=== PATIENT | male | born 1975 | race African-American/Black ===

== ENCOUNTER 2022-09-20 00:01 | Inpatient (IN) | payer OTHER ==
[2022-09-20] MEDS ORDERED: Morphine 4 MG/ML VIAL ONE (00:43)
[2022-09-20 01:27] LABS: ALT (SGPT) 13 U/L (8-55); AST (SGOT) 16 U/L (5-34); Albumin 3.4 g/dL (3.5-5.0); Alkaline Phosphatase 78 U/L (40-110); Anion Gap 12 mmol/L (10-20); BUN (Urea Nitrogen) 16 mg/dL (8.9-20.6); Bilirubin, Total 1.7 mg/dL (0.2-1.2); Calc. Creatinine Clearance 0 mL/min (70-130); Carbon Dioxide 22 mmol/L (22-29); Chloride 104 mmol/L (98-107); Estimated GFR 87; Globulin 3.8 g/dL (2.4-3.5); Glucose 158 mg/dL (70-105); Potassium 4.2 mmol/L (3.5-5.1); Protein, Total 7.2 g/dL (6.0-8.3); Sodium 134 mmol/L (136-145)
[2022-09-20] MEDS ORDERED: cefTRIAXone\\ROCEPHIN 1 GM VIAL ONE (01:46)
[2022-09-20 01:59] LABS: Hemoglobin 13.1 g/dL (14.0-18.0); Mean Corpuscular HGB CONC 32.3 g/dL (32.0-36.0); Mean Corpuscular Hemoglobin 30.8 pg (27.0-31.0); Mean Corpuscular Volume 95.4 fl (78.0-98.0); Mean Platelet Volume 8.4 fL (7.4-10.4); Platelet Count 289 10x3/uL (130-400); RBC Distribution Width 13.1 % (11.5-14.5); Red Blood Cell (RBC) Count 4.25 mill/uL (4.70-6.10); White Blood Cell (WBC) Count 19.7 10x3/uL (4.8-10.8)
[2022-09-20 02:08] LABS: INR-International Normal Ratio 1.2; Prothrombin Time 16.1 sec (12.0-14.7)
[2022-09-20 02:09] LABS: PTT 41.4 sec (22.9-36.1)
[2022-09-20 02:16] LABS: Band 6 % (5-11); Eosinophils 1 % (0-10); Lymphocytes 6 % (21-51); MDiff Complete? YES; Monocytes 11 % (0-10); Neutrophil 76 % (42-75); Platelet Morphology Comment Appears Adequate; RBC Morphology Normal
[2022-09-20] MEDS ORDERED: Heparin 10,000 UNITS/ 10 ML VIAL SLOW IVP SCH (03:00)
[2022-09-20] MEDS ORDERED: Ondansetron ODT 4 MG TAB PO PRN (03:05)
[2022-09-20] MEDS ORDERED: Ondansetron PF 4 MG/2 ML Vial IVP PRN (03:05)
[2022-09-20] MEDS ORDERED: Sodium Chloride 0.9% 1,000 ML IV SCH (03:15)
[2022-09-20 03:25] LABS: Hemoglobin 12.5 g/dL (14.0-18.0); Platelet Count 291 10x3/uL (130-400)
[2022-09-20] MEDS ORDERED: Heparin 25,000 units/D5W 500 ML ONE (04:44)
[2022-09-20] MEDS ORDERED: Heparin 10,000 UNITS/ 10 ML VIAL ONE (04:44)
[2022-09-20] MEDS ORDERED: Azithromycin 500 MG VIAL ONE ×2 (04:45→04:46)
[2022-09-20] MEDS: Heparin 25,000 units/D5W 500 ML IVPB SCH ×2 (05:14→23:59)
[2022-09-20] MEDS: Azithromycin 500 MG in Sodium Chloride 0.9% 250 ML 250 ML IVPB SCH (05:15)
[2022-09-20 06:43] VITALS: BMI 30.9
[2022-09-20] MEDS ORDERED: Genteal 0.3% 3.5ml GEL EA EYE PRN (09:48)
[2022-09-20] MEDS ORDERED: Albuterol Sulfate 2.5 mg/3 ml Neb NEB PRN (09:58)
[2022-09-20 10:13] LABS: PTT 121.8 sec (22.9-36.1)
[2022-09-20 13:58] LABS: Hemoglobin 12.1 g/dL (14.0-18.0)
[2022-09-20] MEDS: HYDROcodone/Acetaminophen 5/325 mg Tablet PO PRN (21:23)
[2022-09-21] MEDS: cefTRIAXone\\ROCEPHIN 1 GM in Sodium Chloride 0.9% 100 ML IVPB SCH (02:14)
[2022-09-21] MEDS: HYDROcodone/Acetaminophen 5/325 mg Tablet PO PRN ×3 (03:18→23:26)
[2022-09-21] MEDS: Azithromycin 500 MG in Sodium Chloride 0.9% 250 ML 250 ML IVPB SCH (03:18)
[2022-09-21 05:07] LABS: Anion Gap 10 mmol/L (10-20); BUN (Urea Nitrogen) 10 mg/dL (8.9-20.6); Calc. Creatinine Clearance 161 mL/min (70-130); Calcium 8.5 mg/dL (7.8-10.44); Carbon Dioxide 24 mmol/L (22-29); Chloride 105 mmol/L (98-107); Estimated GFR 108; Glucose 89 mg/dL (70-105); Potassium 3.6 mmol/L (3.5-5.1); Sodium 135 mmol/L (136-145)
[2022-09-21 05:30] LABS: Burr Cells SLIGHT = 2-5 cells (100X) (0-1/hpf); Eosinophils 3 % (0-10); Hemoglobin 11.4 g/dL (14.0-18.0); Hypochromia SLIGHT = 6-15 cells (100X) (0-5/hpf); Lymphocytes 19 % (21-51); MDiff Complete? YES; Mean Corpuscular HGB CONC 31.8 g/dL (32.0-36.0); Mean Corpuscular Volume 94.3 fl (78.0-98.0); Mean Platelet Volume 7.7 fL (7.4-10.4); Monocytes 11 % (0-10); Neutrophil 67 % (42-75); Platelet Count 330 10x3/uL (130-400); Platelet Morphology Comment Appears Adequate; Polychromasia SLIGHT = 2-3 cells (100X) (0-2/hpf); RBC Distribution Width 13.1 % (11.5-14.5); Red Blood Cell (RBC) Count 3.82 mill/uL (4.70-6.10); White Blood Cell (WBC) Count 11.9 10x3/uL (4.8-10.8)
[2022-09-21 16:00] LABS: INR-International Normal Ratio 1.1
[2022-09-21 16:01] LABS: PTT 72.2 sec (22.9-36.1)
[2022-09-21 16:02] LABS: D-Dimer Test 3.04 *mcg/mL (0.27-0.43)
[2022-09-21 16:19] LABS: ALT (SGPT) 18 U/L (8-55); AST (SGOT) 25 U/L (5-34); Albumin 3.4 g/dL (3.5-5.0); Alkaline Phosphatase 78 U/L (40-110); Bilirubin, Direct 0.3 mg/dL (0.1-0.3); Protein, Total 6.6 g/dL (6.0-8.3)
[2022-09-21 16:32] LABS: Homocysteine 7.88 umol/L (5.08-15.39)
[2022-09-21 16:48] LABS: HBCM Index 0.08 S/CO (0-0.79); HBSAg Index 0.96 S/CO (0-0.99); HIV (1/2) Antibody/Antigen Non-Reactive (NonReactive); Hep A IgM AB Non-Reactive (NonReactive); Hep A IgM S/CO 0.19 S/CO (0-0.79); Hep B Surf Ag Non-Reactive S/CO (NonReactive); Hep C IgG Ab Non-Reactive (NonReactive); Hep C Index 0.06 S/CO (0-0.79); Hepatitis B Core IgM Abs Non-Reactive (NonReactive)
[2022-09-21] MEDS: Clindamycin 150 MG CAP PO SCH ×2 (17:24→23:26)
[2022-09-21 19:44] LABS: Cardiolipin IgA Ab 6.9 APL-U/mL (<14 Negative); Cardiolipin IgG Ab 1.8 GPL-U/mL (<10 Negative); Cardiolipin IgM Ab Less than 0.8 MPL-U/mL (<10 Negative); EliA APS New Method **** NEW METHOD ****
[2022-09-22] MEDS: cefTRIAXone\\ROCEPHIN 1 GM in Sodium Chloride 0.9% 100 ML IVPB SCH (02:11)
[2022-09-22 04:26] LABS: Anion Gap 10 mmol/L (10-20); BUN (Urea Nitrogen) 9 mg/dL (8.9-20.6); Calc. Creatinine Clearance 157 mL/min (70-130); Calcium 8.5 mg/dL (7.8-10.44); Carbon Dioxide 24 mmol/L (22-29); Chloride 105 mmol/L (98-107); Estimated GFR 108; Glucose 108 mg/dL (70-105); Potassium 3.4 mmol/L (3.5-5.1); Sodium 136 mmol/L (136-145)
[2022-09-22 05:10] LABS: Eosinophils 3 % (0-10); Hemoglobin 11.2 g/dL (14.0-18.0); Lymphocytes 30 % (21-51); MDiff Complete? YES; Mean Corpuscular HGB CONC 32.1 g/dL (32.0-36.0); Mean Corpuscular Volume 93.4 fl (78.0-98.0); Mean Platelet Volume 7.5 fL (7.4-10.4); Monocytes 14 % (0-10); Neutrophil 51 % (42-75); Platelet Count 349 10x3/uL (130-400); Platelet Morphology Comment Appears Adequate; RBC Distribution Width 13.1 % (11.5-14.5); RBC Morphology Normal; Red Blood Cell (RBC) Count 3.75 mill/uL (4.70-6.10); White Blood Cell (WBC) Count 11.3 10x3/uL (4.8-10.8)
[2022-09-22] MEDS: Clindamycin 150 MG CAP PO SCH ×4 (05:29→23:29)
[2022-09-22] MEDS ORDERED: Potassium Chloride 20 MEQ TAB PO SCH (10:30)
[2022-09-22] MEDS: HYDROcodone/Acetaminophen 5/325 mg Tablet PO PRN ×2 (14:18→20:06)
[2022-09-22] MEDS ORDERED: Morphine 4 MG/ML VIAL SLOW IVP PRN (14:51)
[2022-09-22] MEDS ORDERED: Ketorolac Tromethamine 30 MG/ML VIAL IVP PRN (14:52)
[2022-09-22] MEDS ORDERED: Ketorolac Tromethamine 30 MG/ML VIAL IVP SCH (15:00)
[2022-09-22 15:18] LABS: Protein C Activity 70 % (78-152)
[2022-09-22 15:19] LABS: Factor VIII Test 486.3 % ACTIVE (56-157)
[2022-09-22] MEDS ORDERED: guaiFENesin ER 600 MG TAB PO SCH (16:15)
[2022-09-22] MEDS: Potassium Chloride 20 MEQ TAB PO SCH (16:22)
[2022-09-22] MEDS: guaiFENesin ER 600 MG TAB PO SCH (20:06)
[2022-09-23] MEDS: cefTRIAXone\\ROCEPHIN 1 GM in Sodium Chloride 0.9% 100 ML IVPB SCH (01:59)
[2022-09-23] MEDS: Heparin 25,000 units/D5W 500 ML IVPB SCH (02:00)
[2022-09-23] MEDS: HYDROcodone/Acetaminophen 5/325 mg Tablet PO PRN ×2 (02:13→20:31)
[2022-09-23 04:27] LABS: Anion Gap 12 mmol/L (10-20); BUN (Urea Nitrogen) 9 mg/dL (8.9-20.6); Calc. Creatinine Clearance 152 mL/min (70-130); Calcium 8.7 mg/dL (7.8-10.44); Carbon Dioxide 22 mmol/L (22-29); Chloride 106 mmol/L (98-107); Estimated GFR 106; Glucose 130 mg/dL (70-105); Potassium 3.6 mmol/L (3.5-5.1); Sodium 136 mmol/L (136-145)
[2022-09-23] MEDS: Clindamycin 150 MG CAP PO SCH ×4 (05:24→23:35)
[2022-09-23 05:38] LABS: Eosinophils 5 % (0-10); Hemoglobin 11.7 g/dL (14.0-18.0); Lymphocytes 28 % (21-51); MDiff Complete? YES; Mean Corpuscular HGB CONC 31.8 g/dL (32.0-36.0); Mean Corpuscular Hemoglobin 29.9 pg (27.0-31.0); Mean Platelet Volume 7.8 fL (7.4-10.4); Monocytes 20 % (0-10); Myelocyte 1 % (0-0); Neutrophil 44 % (42-75); Nucleated RBC 1 % (0); Platelet Count 386 10x3/uL (130-400); Platelet Morphology Comment Appears Adequate; RBC Distribution Width 13.2 % (11.5-14.5); RBC Morphology Normal; Red Blood Cell (RBC) Count 3.92 mill/uL (4.70-6.10); White Blood Cell (WBC) Count 13.1 10x3/uL (4.8-10.8)
[2022-09-23] MEDS: guaiFENesin ER 600 MG TAB PO SCH ×2 (08:58→20:31)
[2022-09-23] MEDS: Potassium Chloride 20 MEQ TAB PO SCH ×2 (08:58→17:02)
[2022-09-23] MEDS ORDERED: Apixaban 5 MG TAB PO SCH (10:15)
[2022-09-23 10:32] LABS: HEX PHOS LA Tube 1 48.3 SEC; Hexagonal Phospholipid Neut 7.3 SEC (0-8.0)
[2022-09-23] MEDS: Apixaban 5 MG TAB PO SCH (20:31)
[2022-09-24] MEDS: cefTRIAXone\\ROCEPHIN 1 GM in Sodium Chloride 0.9% 100 ML IVPB SCH (01:37)
[2022-09-24 04:04] LABS: Hemoglobin 11.9 g/dL (14.0-18.0); Platelet Count 476 10x3/uL (130-400)
[2022-09-24] MEDS: Clindamycin 150 MG CAP PO SCH ×3 (05:19→17:56)
[2022-09-24] MEDS: Potassium Chloride 20 MEQ TAB PO SCH ×2 (08:31→17:56)
[2022-09-24] MEDS: guaiFENesin ER 600 MG TAB PO SCH ×2 (08:31→20:28)
[2022-09-24] MEDS: Apixaban 5 MG TAB PO SCH ×2 (08:32→20:28)
[2022-09-24] MEDS: HYDROcodone/Acetaminophen 5/325 mg Tablet PO PRN (08:32)
[2022-09-24] MEDS ORDERED: Ketorolac Tromethamine 60 MG/2 ML VIAL IM PRN (11:45)
[2022-09-24] MEDS: Triamcinolone 0.1% Cream 15 GM TUBE TOP SCH (20:28)
[2022-09-25] MEDS: cefTRIAXone\\ROCEPHIN 1 GM in Sodium Chloride 0.9% 100 ML IVPB SCH (01:54)
[2022-09-25] MEDS: HYDROcodone/Acetaminophen 5/325 mg Tablet PO PRN ×2 (02:30→13:10)
[2022-09-25 05:20] LABS: #Eosinphils 0.8 thou/uL (0.0-0.7); #Lymphocytes 3.1 thou/uL (1.20-3.40); #Monocytes 1.9 thou/uL (0.11-0.59); #Neutrophils 7.1 thou/uL (1.40-6.50); %Basophils 0.1 % (0.0-1.0); %Eosinophils 6.1 % (0.0-10.0); %Monocytes 14.9 % (0.0-10.0); %Neutrophils 54.8 % (42.0-75.0); Hemoglobin 12.3 g/dL (14.0-18.0); Mean Corpuscular HGB CONC 31.7 g/dL (32.0-36.0); Mean Corpuscular Hemoglobin 29.8 pg (27.0-31.0); Mean Corpuscular Volume 93.8 fl (78.0-98.0); Mean Platelet Volume 7.4 fL (7.4-10.4); Platelet Count 547 10x3/uL (130-400); RBC Distribution Width 13.6 % (11.5-14.5); Red Blood Cell (RBC) Count 4.13 mill/uL (4.70-6.10); White Blood Cell (WBC) Count 12.9 10x3/uL (4.8-10.8)
[2022-09-25] MEDS: Clindamycin 150 MG CAP PO SCH ×5 (05:23→23:47)
[2022-09-25 05:31] LABS: Anion Gap 12 mmol/L (10-20); BUN (Urea Nitrogen) 12 mg/dL (8.9-20.6); Calc. Creatinine Clearance 135 mL/min (70-130); Calcium 9.1 mg/dL (7.8-10.44); Carbon Dioxide 23 mmol/L (22-29); Chloride 106 mmol/L (98-107); Estimated GFR 95; Glucose 88 mg/dL (70-105); Magnesium 2.1 mg/dL (1.6-2.6); Potassium 4.7 mmol/L (3.5-5.1); Sodium 136 mmol/L (136-145)
[2022-09-25] MEDS: guaiFENesin ER 600 MG TAB PO SCH ×2 (10:08→20:49)
[2022-09-25] MEDS: Apixaban 5 MG TAB PO SCH ×2 (10:08→20:49)
[2022-09-25] MEDS: Potassium Chloride 20 MEQ TAB PO SCH ×2 (10:08→16:55)
[2022-09-25] MEDS: Triamcinolone 0.1% Cream 15 GM TUBE TOP SCH ×2 (10:09→20:49)
[2022-09-25 15:37] LABS: QuantiFERON-TB Gold Plus Negative (Negative)
[2022-09-25] MEDS: Acetaminophen 325 MG TAB PO PRN (16:55)
[2022-09-26] MEDS: cefTRIAXone\\ROCEPHIN 1 GM in Sodium Chloride 0.9% 100 ML IVPB SCH (02:09)
[2022-09-26 04:22] LABS: Hemoglobin 12.4 g/dL (14.0-18.0); Platelet Count 581 10x3/uL (130-400)
[2022-09-26 04:58] LABS: #Basophils 0.1 thou/uL (0.0-0.2); #Eosinphils 0.7 thou/uL (0.0-0.7); #Monocytes 1.5 thou/uL (0.11-0.59); #Neutrophils 7.3 thou/uL (1.40-6.50); %Basophils 0.7 % (0.0-1.0); %Eosinophils 5.4 % (0.0-10.0); %Monocytes 12.1 % (0.0-10.0); %Neutrophils 57.8 % (42.0-75.0); Hemoglobin 12.9 g/dL (14.0-18.0); Mean Corpuscular HGB CONC 32.7 g/dL (32.0-36.0); Mean Corpuscular Hemoglobin 30.7 pg (27.0-31.0); Mean Corpuscular Volume 93.9 fl (78.0-98.0); Platelet Count 607 10x3/uL (130-400); RBC Distribution Width 13.6 % (11.5-14.5); Red Blood Cell (RBC) Count 4.19 mill/uL (4.70-6.10); White Blood Cell (WBC) Count 12.6 10x3/uL (4.8-10.8)
[2022-09-26] MEDS: Clindamycin 150 MG CAP PO SCH ×4 (05:19→23:12)
[2022-09-26 05:21] LABS: Anion Gap 12 mmol/L (10-20); BUN (Urea Nitrogen) 14 mg/dL (8.9-20.6); Calc. Creatinine Clearance 142 mL/min (70-130); Carbon Dioxide 22 mmol/L (22-29); Chloride 104 mmol/L (98-107); Estimated GFR 101; Glucose 107 mg/dL (70-105); Magnesium 2.2 mg/dL (1.6-2.6); Potassium 4.8 mmol/L (3.5-5.1); Sodium 133 mmol/L (136-145)
[2022-09-26] MEDS: HYDROcodone/Acetaminophen 5/325 mg Tablet PO PRN ×2 (05:21→20:35)
[2022-09-26] MEDS: Apixaban 5 MG TAB PO SCH ×2 (10:25→20:36)
[2022-09-26] MEDS: guaiFENesin ER 600 MG TAB PO SCH ×2 (10:26→20:35)
[2022-09-26] MEDS: Potassium Chloride 20 MEQ TAB PO SCH ×2 (10:26→17:34)
[2022-09-26] MEDS: Triamcinolone 0.1% Cream 15 GM TUBE TOP SCH ×2 (10:28→20:37)
[2022-09-27] MEDS: cefTRIAXone\\ROCEPHIN 1 GM in Sodium Chloride 0.9% 100 ML IVPB SCH (01:11)
[2022-09-27] MEDS: Clindamycin 150 MG CAP PO SCH ×4 (05:10→23:36)
[2022-09-27] MEDS: HYDROcodone/Acetaminophen 5/325 mg Tablet PO PRN ×3 (05:12→23:34)
[2022-09-27 05:15] LABS: #Eosinphils 0.6 thou/uL (0.0-0.7); #Lymphocytes 3.2 thou/uL (1.20-3.40); #Monocytes 1.3 thou/uL (0.11-0.59); %Eosinophils 4.5 % (0.0-10.0); %Lymphocytes 24.2 % (21.0-51.0); %Monocytes 10.3 % (0.0-10.0); Mean Corpuscular HGB CONC 32.1 g/dL (32.0-36.0); Mean Corpuscular Hemoglobin 30.1 pg (27.0-31.0); Mean Corpuscular Volume 93.8 fl (78.0-98.0); Mean Platelet Volume 6.9 fL (7.4-10.4); Platelet Count 653 10x3/uL (130-400); RBC Distribution Width 13.6 % (11.5-14.5); Red Blood Cell (RBC) Count 4.31 mill/uL (4.70-6.10)
[2022-09-27 05:37] LABS: Anion Gap 13 mmol/L (10-20); BUN (Urea Nitrogen) 16 mg/dL (8.9-20.6); Calc. Creatinine Clearance 125 mL/min (70-130); Calcium 9.4 mg/dL (7.8-10.44); Carbon Dioxide 22 mmol/L (22-29); Chloride 102 mmol/L (98-107); Estimated GFR 87; Glucose 109 mg/dL (70-105); Magnesium 2.3 mg/dL (1.6-2.6); Potassium 5.1 mmol/L (3.5-5.1); Sodium 132 mmol/L (136-145)
[2022-09-27] MEDS: Potassium Chloride 20 MEQ TAB PO SCH ×2 (09:47→16:42)
[2022-09-27] MEDS: Triamcinolone 0.1% Cream 15 GM TUBE TOP SCH ×2 (09:47→21:00)
[2022-09-27] MEDS: guaiFENesin ER 600 MG TAB PO SCH ×2 (09:47→20:56)
[2022-09-27] MEDS: Apixaban 5 MG TAB PO SCH ×2 (09:47→20:56)
[2022-09-27 14:15] LABS: #Basophils 0.1 thou/uL (0.0-0.2); #Eosinphils 0.4 thou/uL (0.0-0.7); #Lymphocytes 2.4 thou/uL (1.20-3.40); #Monocytes 1.2 thou/uL (0.11-0.59); %Basophils 0.7 % (0.0-1.0); %Eosinophils 3.3 % (0.0-10.0); %Lymphocytes 18.5 % (21.0-51.0); %Monocytes 9.3 % (0.0-10.0); %Neutrophils 68.2 % (42.0-75.0); Hemoglobin 13.2 g/dL (14.0-18.0); Mean Corpuscular HGB CONC 32.4 g/dL (32.0-36.0); Mean Corpuscular Hemoglobin 30.2 pg (27.0-31.0); Mean Corpuscular Volume 93.2 fl (78.0-98.0); Mean Platelet Volume 6.8 fL (7.4-10.4); Platelet Count 655 10x3/uL (130-400); RBC Distribution Width 13.6 % (11.5-14.5); Red Blood Cell (RBC) Count 4.38 mill/uL (4.70-6.10); White Blood Cell (WBC) Count 13.2 10x3/uL (4.8-10.8)
[2022-09-27 14:25] LABS: Anion Gap 11 mmol/L (10-20); BUN (Urea Nitrogen) 15 mg/dL (8.9-20.6); Calc. Creatinine Clearance 124 mL/min (70-130); Calcium 9.2 mg/dL (7.8-10.44); Carbon Dioxide 26 mmol/L (22-29); Chloride 100 mmol/L (98-107); Estimated GFR 86; Glucose 119 mg/dL (70-105); Potassium 4.9 mmol/L (3.5-5.1); Sodium 132 mmol/L (136-145)
[2022-09-28] MEDS: cefTRIAXone\\ROCEPHIN 1 GM in Sodium Chloride 0.9% 100 ML IVPB SCH (01:54)
[2022-09-28 04:30] LABS: Hemoglobin 12.7 g/dL (14.0-18.0); Platelet Count 613 10x3/uL (130-400)
[2022-09-28] MEDS: HYDROcodone/Acetaminophen 5/325 mg Tablet PO PRN ×2 (05:58→17:57)
[2022-09-28] MEDS: Potassium Chloride 20 MEQ TAB PO SCH ×2 (09:43→17:57)
[2022-09-28] MEDS: Apixaban 5 MG TAB PO SCH ×2 (09:43→21:24)
[2022-09-28] MEDS: guaiFENesin ER 600 MG TAB PO SCH ×2 (09:43→21:25)
[2022-09-28] MEDS: Triamcinolone 0.1% Cream 15 GM TUBE TOP SCH ×2 (09:44→21:26)
[2022-09-28] MEDS ORDERED: Sodium Chloride 0.65% Nasal 44 ML BOT EA NARE PRN (15:11)
[2022-09-28] MEDS: Acetaminophen 325 MG TAB PO PRN (15:39)
[2022-09-28 16:14] LABS: Activated Protein C Resistance 2.8 ratio (.)
[2022-09-28] MEDS: Amoxicillin/Potassium Clav 875 MG TAB PO SCH (21:24)
[2022-09-29] MEDS ORDERED: Benzonatate 100 MG CAP PO PRN (06:17)
[2022-09-29] MEDS ORDERED: Polyethylene Glycol 3350 17 GM Packet PO PRN (06:18)
[2022-09-29] MEDS: Apixaban 5 MG TAB PO SCH (10:03)
[2022-09-29] MEDS: guaiFENesin ER 600 MG TAB PO SCH (10:03)
[2022-09-29] MEDS: Amoxicillin/Potassium Clav 875 MG TAB PO SCH (10:03)
[2022-09-29] MEDS: Potassium Chloride 20 MEQ TAB PO SCH (10:03)
[2022-09-29] MEDS: HYDROcodone/Acetaminophen 5/325 mg Tablet PO PRN (10:04)
[2022-09-29] MEDS: Triamcinolone 0.1% Cream 15 GM TUBE TOP SCH (10:04)
[2022-09-29 14:03] VITALS: BP 128/73; TEMP 97.8
[2022-09-30] MEDS ORDERED: Apixaban 5 MG TAB PO SCH (09:00)
== END 2022-09-29 14:51 | DRG 299 ==
LOC: ERS 00:01 → EEVIPCON 01:46 → ERHOLD 01:46 → 2NO 17:22
PROVIDERS: ADMIT Internal Medicine; ATTEND Internal Medicine
DX: I82.412 Acute embolism and thrombosis of left femoral vein (principal); I26.99 Other pulmonary embolism without acute cor pulmonale; J13 Pneumonia due to Streptococcus pneumoniae; J90 Pleural effusion, not elsewhere classified; E87.1 Hypo-osmolality and hyponatremia; R04.2 Hemoptysis; Z20.822 Contact with and (suspected) exposure to COVID-19; I10 Essential (primary) hypertension; J45.909 Unspecified asthma, uncomplicated; I87.2 Venous insufficiency (chronic) (peripheral); I95.9 Hypotension, unspecified; J98.4 Other disorders of lung; E87.6 Hypokalemia; F17.210 Nicotine dependence, cigarettes, uncomplicated; Z79.51 Long term (current) use of inhaled steroids
CPT/HCPCS: 36415; 71045; 80048; 80053; 80074; 80076; 83090; 83735; 83880; 84484; 85014; 85018; 85025; 85049; 85240; 85300; 85303; 85305; 85307; 85379; 85598; 85610; 85652; 85730; 86140; 86147; 86480; 86850; 86900; 86901; 87070; 87116; 87205; 87206; 87389; 87811; 93005; 93010; 93306; 93970; 94640; 96374; 96375; J0456; J0696; J1644; J1885; J2270; J3490; J7050; J7620; U0003; U0005